=== PATIENT | female | born 1980 | race Caucasian/White ===

== ENCOUNTER 2018-03-28 14:59 | Outpatient (REF) | payer MEDICARE, MEDICAID, SELFPAY ==
[2018-03-28 21:41] LABS: Anion Gap 9.3 mmol/L (3-11); BUN 7 mg/dL (7-18); C-Reactive Protein 2.02 mg/dL (0.0-0.3); CO2 27.7 mmol/L (21.0-32.0); CREATININE 0.58 mg/dL (0.55-1.02); Calcium 8.8 mg/dL (8.5-10.1); Chloride 104 mmol/L (98-107); Glucose 104 mg/dL (70-100); Potassium 3.6 mmol/L (3.5-5.1); Sodium 141 mmol/L (136-145)
[2018-03-28 22:16] LABS: ESR 17 MM/HR (0-20)
[2018-03-30 09:59] LABS: Cyclic Citrullinated Peptide 3.9 U/mL (<5.0)
[2018-03-31 12:39] LABS: ANA Interpretation Positive (NEGAT); ANA Titer Pattern 1:320 Speckled
== END 2018-03-28 15:19 ==
LOC: NCHCN 14:59
PROVIDERS: Visit Provider Nurse Practitioner Family
DX: M25.50 Pain in unspecified joint (principal)
CPT/HCPCS: 80048; 85652; 86200; 86038; 86140

== ENCOUNTER 2018-04-15 15:04 | Outpatient (REF) | payer MEDICARE, MEDICAID, SELFPAY ==
[2018-04-15 21:08] LABS: ALT 36 U/L (12-78); AST 27 U/L (15-37); Alkaline Phosphatase 72 U/L (46-116); Anion Gap 8.7 mmol/L (3-11); BUN 11 mg/dL (7-18); Bilirubin, Total 0.4 mg/dL (0.2-1.0); C-Reactive Protein 3.07 mg/dL (0.0-0.3); CO2 30.3 mmol/L (21.0-32.0); Calcium 9.6 mg/dL (8.5-10.1); Chloride 102 mmol/L (98-107); Glucose 108 mg/dL (70-100); Mean Corp. HGB Concentration 31.3 g/dL (32.0-36.0); Mean Corpuscular Hemoglobin 29.8 pg (27.0-33.0); Mean Corpuscular Volume 95.4 fL (80-95); Platelet Count 261 x1000/uL (130-400); Potassium 3.6 mmol/L (3.5-5.1); RBC 5.03 m/cumm (4.00-5.20); RBC Distribution Width 14.6 % (11.7-14.6); Sodium 141 mmol/L (136-145); Total Protein 6.9 g/dL (6.4-8.2); White Blood Cell Count 9.28 k/cumm (4.4-10.8)
[2018-04-15 21:26] LABS: PROTEIN 8.4 mg/dL
[2018-04-15 21:27] LABS: COMMENT (LAB VIEW ONLY) 69.77 mg/dL; Prot/Crea Ur Ratio 0.12
[2018-04-18 12:11] LABS: Rheumatoid Factor 9 IU/mL (<12.5)
[2018-04-19 13:27] LABS: ANA Interpretation Positive (NEGAT); ANA Titer Pattern 1:160 Nucleolar
== END 2018-04-15 15:24 ==
LOC: NCHCN 15:04
PROVIDERS: Visit Provider Family Medicine
DX: M06.4 Inflammatory polyarthropathy (principal); E66.9 Obesity, unspecified
CPT/HCPCS: 80053; 85027; 82565; 84156; 86038; 86140; 86431

== ENCOUNTER 2021-01-02 12:19 | Outpatient (REF) | payer MEDICARE, MEDICAID, SELFPAY ==
--- NOTE | 2021-01-02 11:30 | PAPFT_PTH ---
PATIENT: Aspen Delarosa LOC: [facility] U#:[id number] AGE/SX: 40/F ROOM: RE01/02/[address]: Damon Scott : 1980 BED: DIS: 01/02/2021 SPEC #: [id number] RECD: 01/03/21 13:08 STATUS: MATY HUGHES #: [id number] NAOMI: 01/02/21 11:[address]: Damon Scott DEPT: [facility] Cytology RECD BY: Darcy Chicas Tissues: 1 - CX/ENDOCX FOR PAP SMEARS Procedures: PAP THIN PREP/[facility] Screening HPV DNA PROBE Comments: [id number]
== END 2021-01-02 12:20 | disposition home or self-care (01) ==
LOC: NCHCN 12:19
PROVIDERS: PCP Family Medicine; Visit Provider Family Medicine
DX: Z00.00 Encounter for general adult medical examination without abnormal findings (principal); Z12.4 Encounter for screening for malignant neoplasm of cervix; Z11.51 Encounter for screening for human papillomavirus (HPV); Z01.419 Encounter for gynecological examination (general) (routine) without abnormal findings
CPT/HCPCS: 88142; 87624

== ENCOUNTER 2021-01-30 11:14 | Outpatient (REF) | payer MEDICARE, MEDICAID, SELFPAY ==
[2021-01-30 15:09] LABS: ALT 36 U/L (14-59); AST 29 U/L (15-37); Albumin 3.1 g/dL (3.4-5.0); Alkaline Phosphatase 63 U/L (46-116); Anion Gap 5.7 mmol/L (3-11); BUN 13 mg/dL (7-18); Bilirubin, Total 0.2 mg/dL (0.2-1.0); CO2 32.3 mmol/L (21.0-32.0); CREATININE 0.7 mg/dL (0.55-1.02); Calcium 9.3 mg/dL (8.5-10.1); Calculated LDL 88 mg/dL (<100); Chloride 108 mmol/L (98-107); Cholesterol 156 mg/dL (<200); Glucose 116 mg/dL (74-106); HDL Cholesterol 49 mg/dL (40-60); Potassium 4.8 mmol/L (3.5-5.1); Sodium 146 mmol/L (136-145); TSH (W/Ref FT4) 2.11 uIU/mL (0.36-3.74); Total Protein 7.2 g/dL (6.4-8.2); Triglyceride 96 mg/dL (<150)
== END 2021-01-30 11:15 | disposition home or self-care (01) ==
LOC: NCHCN 11:14
PROVIDERS: PCP Family Medicine; Visit Provider Family Medicine
DX: E66.9 Obesity, unspecified (principal); R79.89 Other specified abnormal findings of blood chemistry
CPT/HCPCS: 80053; 80061; 84443

== ENCOUNTER 2024-07-24 18:12 | Outpatient (REF) | payer MEDICARE, MEDICAID, SELFPAY ==
[2024-07-24 20:59] LABS: HCT 49.4 % (36.0-46.0); HGB 14.9 g/dL (11.2-15.7); MCHC 30.2 % (32.0-36.0); MCV 90 fL (80-95); MPV 10.2 fL (8.0-11.0); Platelet Count 137 10^3/uL (130-400); RBC 5.52 10^6/uL (3.93-5.22); RDW 14.1 % (11.7-14.6); RDW-SD 46.5 fL; WBC 4.41 10^3/uL (4.4-10.8)
[2024-07-24 21:12] LABS: ALT 25 U/L (14-59); AST 30 U/L (15-37); Albumin 2.6 g/dL (3.4-5.0); Alkaline Phosphatase 70 U/L (46-116); Anion Gap -0.9 mmol/L (3-11); BUN 16 mg/dL (7-18); Bilirubin, Total 0.13 mg/dL (0.2-1.0); CO2 38.9 mmol/L (21.0-32.0); CREATININE 0.6 mg/dL (0.55-1.02); Calcium 8.3 mg/dL (8.5-10.1); Chloride 107 mmol/L (98-107); Estimated GFR 112.04 (mL/min/1.73m2); Glucose 105 mg/dL (74-106); Potassium 3.4 mmol/L (3.5-5.1); Sodium 145 mmol/L (136-145); Total Protein 7.5 g/dL (6.4-8.2)
== END 2024-07-24 18:13 | disposition home or self-care (01) ==
LOC: NCHCN 18:12
PROVIDERS: PCP Family Medicine; Visit Provider Internal Medicine
DX: R53.83 Other fatigue (principal)
CPT/HCPCS: 80053; 85027